=== PATIENT | female | born 1990 | race Caucasian/White ===

== ENCOUNTER 2017-07-05 03:30 | Emergency (ER) | payer OTHER ==
[~2017-07-05] VITALS: Ht 160 cm; Wt 90.7 kg
[2017-07-05 03:33] VITALS: BP 146/85
[2017-07-05 03:43] VITALS: BP 146/85
== END 2017-07-05 03:43 ==
LOC: MED 03:30
DX: Z02.89 Encounter for other administrative examinations (principal); Z88.2 Allergy status to sulfonamides; V29.9XXA Motorcycle rider (driver) (passenger) injured in unspecified traffic accident, initial encounter; Y93.I9 Activity, other involving external motion; Y92.488 Other paved roadways as the place of occurrence of the external cause; Y99.8 Other external cause status
CPT/HCPCS: 99283